=== PATIENT | male | born 1990 | race Hispanic/Latino ===

== ENCOUNTER 2017-06-28 16:28 | Emergency (ER) | payer SELFPAY ==
[2017-06-28] MEDS ORDERED: TYLENOL ONE (18:33)
[2017-06-28 18:36] VITALS: BP 124/71
[2017-06-28] MEDS ORDERED: TYLENOL PO ONE (18:37)
== END 2017-06-29 07:08 | disposition left against medical advice (07) ==
LOC: ED 16:28
DX: J11.1 Influenza due to unidentified influenza virus with other respiratory manifestations (principal); Z53.21 Procedure and treatment not carried out due to patient leaving prior to being seen by health care provider
CPT/HCPCS: 87400; 87430